=== PATIENT | female | born 1980 | race Caucasian/White ===

== ENCOUNTER 2022-09-10 12:07 | Outpatient (CLI) | payer SELFPAY | END 2022-09-10 12:08 | disposition home or self-care (01) | LOC: RAD 12:07 | PROVIDERS: ATTEND Physician Assistant Medical | DX: K59.00 Constipation, unspecified (principal) | CPT/HCPCS: 74018 ==

== ENCOUNTER 2022-10-02 13:36 | Outpatient (CLI) | payer OTHER | END 2022-10-02 13:37 | disposition home or self-care (01) | LOC: BICRAD 13:36 | PROVIDERS: ATTEND Physician Assistant Medical | DX: K59.00 Constipation, unspecified (principal) | CPT/HCPCS: 74018 ==